=== PATIENT | male | born 1945 | race Caucasian/White ===

== ENCOUNTER 2017-02-25 14:58 | Emergency (ER) | payer MEDICARE, BC ==
--- NOTE | 2017-02-25 17:49 | UC ---
Ej Valle Rebecca, scribed for Tyrone Arboleda MD on 02/25/17 at 1631 . Respiratory Complaint HPI - HPI Summary HPI Summary: Pt is a 71 y/o M who presents to [facility] c/o continuing respiratory symptoms for 8 days. Sx began gradually with chills, diarrhea, cough and chest tightness and congestion. Sx improved over the weekend with OTC medication. Pt continues to experience unproductive cough and chest tightness with the diarrhea and chills now resolved. Tightness is improved in the morning, worse in the evening. Denies fever and wheezing. Prior similar episode 8-9 years ago. No PMHx COPD, asthma, CAD. Has never used albuterol. - History of Current Complaint Chief Complaint: UCRespiratory Stated Complaint: URI Time Seen by Provider: 02/25/17 16:25 Hx Obtained From: Patient Onset/Duration: Lasting Days - 8 days, Still Present Severity Currently: Moderate Pain Intensity: 6 Pain Scale Used: 0-10 Numeric Character: Cough: Nonproductive Aggravating Factors: Nothing Alleviating Factors: OTC Meds Associated Signs And Symptoms: Positive: Chills - resolved. Negative: Fever Related History: Similar Episode/Dx as: - Simialr episode 8-9 years ago - Allergies/Home Medications Allergies/Adverse Reactions: Allergies Allergy/AdvReac Type Severity Reaction Status Date / Time No Known Allergies Allergy Verified 02/25/17 15:22 Home Medications: Home Medications Azelastine 0.15% NASAL(NF) 1 inh INH PRN 02/25/17 [History] PMH/Surg Hx/FS Hx/Imm Hx - Additional Past Medical History Additional PMH: Negative PMHx COPD, asthma, CAD. Cardiovascular History: Hypertension - Surgical History Surgical History: Yes Surgery Procedure, Year, and Place: Appendectomy at age 14, ENDOSCOPY - Family History Known Family History: Positive: Hypertension - Social History Alcohol Use: Daily Alcohol Amount: 2/DAY Substance Use Type: None Smoking Status (MU): Never Smoked Tobacco Review of Systems Constitutional: Chills - resolved Skin: Negative Eyes: Negative ENT: Negative Respiratory: Cough, Other - Chest tightness and congestion; NEGATIVE: Wheezing Cardiovascular: Negative Gastrointestinal: Diarrhea - resolved Genitourinary: Negative Motor: Negative Neurovascular: Negative Musculoskeletal: Negative Neurological: Negative Psychological: Negative All Other Systems Reviewed And Are Negative: Yes - Comments Additional Review of Systems Comments: NEGATIVE: Wheezing and fever Physical Exam Triage Information Reviewed: Yes Vital Signs: Initial Vital Signs Temp 97.8 F 02/25/17 15:16 Pulse 80 02/25/17 15:16 Pulse Ox 98 02/25/17 15:16 Vital Signs Reviewed: Yes - Additional Comments General: well-appearing, no pain distress Skin: warm, color reflects adequate perfusion, dry Head: normal Eyes: EOMI, LARS ENT: normal Neck: supple, nontender Respiratory: CTA, breath sounds present Cardiovascular: RRR Musculoskeletal: normal, strength/ROM intact Neurological: normal, sensory/motor intact, A&O x3 Psychological: affect/mood appropriate Diagnostic Evaluation - Laboratory O2 Sat by Pulse Oximetry: 98 Respiratory Course/Dx - Course Course Of Treatment: Pt medications reviewed. - Differential Dx/Diagnosis Provider Diagnoses: BRONCHITIS WITH BRONCHOSPASM Discharge - Discharge Plan Condition: Stable Disposition: HOME Prescriptions: Albuterol HFA INHALER* [Ventolin HFA Inhaler*] 2 puff INH Q4H PRN #1 mdi PRN Reason: Dyspnea Azithromyxin GERSON (NF) [Z-Gerson (Zithromax) 250 mg tabs #6] 2 tab PO .TODAY, THEN 1 DAILY #6 tab Patient Education Materials: Acute Bronchitis (ED), Bronchospasm (ED) Referrals: Ronna Santos MD [Primary Care Provider] - Additional Instructions: FOLLOW UP WITH YOUR DOCTOR. GET RECHECKED FOR ANY WORSENING OF YOUR CONDITION OR QUESTIONS OR CONCERNS. The documentation as recorded by the Ej dudley Rebecca accurately reflects the service I personally performed and the decisions made by me, Tyrone Arboleda MD.
== END 2017-02-25 16:48 | disposition home or self-care (01) ==
LOC: UCEAST 14:58
DX: J98.01 Acute bronchospasm (principal); I10 Essential (primary) hypertension; J40 Bronchitis, not specified as acute or chronic
CPT/HCPCS: 99212; G0463

== ENCOUNTER 2018-09-11 11:13 | Emergency (ER) | payer MEDICARE ==
[2018-09-11 11:22] VITALS: BP 140/89
--- NOTE | 2018-09-11 11:39 | UC ---
Skin Complaint HPI - HPI Summary HPI Summary: patient found engorged deer tick on R upper thigh this am. not sure how lng it was intact. was able to remove tick with tweezers. Pt has hx Lyme disease 20 years ago - History of Current Complaint Chief Complaint: UCSkin Time Seen by Provider: 09/11/18 11:18 Stated Complaint: TICK BITE Hx Obtained From: Patient Onset/Duration: Sudden Onset Skin Exposure Onset/Duration: Hours Ago Pain Intensity: 0 Location: Other - L upper lateral thigh Aggravating Factor(s): Nothing Alleviating Factor(s): Nothing Associated Signs & Symptoms: Positive: Negative Related History: Insect Bite/Sting - Allergy/Home Medications Allergies/Adverse Reactions: Allergies Allergy/AdvReac Type Severity Reaction Status Date / Time No Known Allergies Allergy Verified 09/11/18 11:17 Home Medications: Home Medications Atorvastatin* [Lipitor 10 MG*] 10 mg PO QPM 09/11/18 [History Confirmed 09/11/18 ] Azelastine 0.05% (OPHTH)(NF) [Optivar 0.05% (NF)] 09/11/18 [History Confirmed 09/11/18] Esomeprazole(NF) [Nexium(NF)] 40 mg PO EVERY OTHER DAY 09/11/18 [History Confirmed 09/11/18] Leuprolide 11.25 MG KIT [Lupron Depot*] 1 syr SEE INSTRUCTIONS 09/11/18 [ History Confirmed 09/11/18] Valsartan/HCTZ 320/25(NF) [Diovan Hct 320/25(NF)] 1 tab PO DAILY 09/11/18 [ History Confirmed 09/11/18] Venlafaxine EXT RELEASE CAP* [Effexor Xr CAP*] 75 mg PO DAILY 09/11/18 [History Confirmed 09/11/18] PMH/Surg Hx/FS Hx/Imm Hx Previously Healthy: Yes Endocrine History: Dyslipidemia Cardiovascular History: Hypertension GI/ History: Gastroesophageal Reflux, Other - prostate CA Psychological History: Depression Cancer History: Prostate Cancer - Surgical History Surgical History: Yes Surgery Procedure, Year, and Place: Appendectomy at age 14, ENDOSCOPY - Family History Known Family History: Positive: Hypertension - Social History Occupation: Retired Lives: With Family Alcohol Use: Daily Alcohol Amount: 2/DAY Substance Use Type: None Smoking Status (MU): Never Smoked Tobacco Review of Systems All Other Systems Reviewed And Are Negative: Yes Constitutional: Positive: Negative Skin: Positive: Other - tick bite - redness Respiratory: Positive: Negative Cardiovascular: Positive: Negative Neurological: Positive: Negative Psychological: Positive: Negative Physical Exam Triage Information Reviewed: Yes Appearance: Well-Appearing, No Pain Distress, Well-Nourished Vital Signs: Initial Vital Signs Temp 97.5 F 09/11/18 11:18 Pulse 78 09/11/18 11:18 Resp 16 09/11/18 11:18 BP 140/89 09/11/18 11:18 Pulse Ox 97 09/11/18 11:18 Vital Signs Reviewed: Yes Respiratory Exam: Normal Respiratory: Positive: Lungs clear Cardiovascular Exam: Normal Cardiovascular: Positive: RRR Psychological Exam: Normal Skin Exam: Other - 7mm erythemic circular lesion L lateral upper thigh Course/Dx - Differential Diagnoses - Skin Complaint Differential Diagnoses: Foreign Body, Tick Born Illness - Diagnoses Provider Diagnosis: Tick bite Discharge - Sign-Out/Discharge Documenting (check all that apply): Patient Departure All imaging exams completed and their final reports reviewed: No Studies - Discharge Plan Condition: Good Disposition: HOME Prescriptions: DOXYcycline CAP(*) [DOXYcycline 100MG CAP(*)] 100 mg PO DAILY #2 cap Patient Education Materials: Tick Bite (ED) Referrals: Ronna Santos MD [Primary Care Provider] - 3 Days (if signs infection develop at bite site and to recheck blood pressure) Additional Instructions: keep wound clean and dry and report signs of infection take doxycycline today as prescribed - Billing Disposition and Condition Condition: GOOD Disposition: Home
== END 2018-09-11 11:45 | disposition home or self-care (01) ==
LOC: UCEAST 11:13
DX: S70.362A Insect bite (nonvenomous), left thigh, initial encounter (principal); W57.XXXA Bitten or stung by nonvenomous insect and other nonvenomous arthropods, initial encounter; Y92.9 Unspecified place or not applicable; E78.5 Hyperlipidemia, unspecified; I10 Essential (primary) hypertension; K21.9 Gastro-esophageal reflux disease without esophagitis; F32.9 Major depressive disorder, single episode, unspecified; Z85.46 Personal history of malignant neoplasm of prostate
CPT/HCPCS: 99212; G0463